=== PATIENT | female | born 1965 | race Caucasian/White ===

== ENCOUNTER 2016-07-03 04:53 | Emergency (ER) | payer MEDICARE, OTHER ==
[~2016-07-03] VITALS: Ht 167.6 cm; Wt 71.0 kg
[2016-07-03 05:08] VITALS: BP 143/87; PULSE 83; RESP 16; TEMP 98.3; O2SAT 100
[2016-07-03] MEDS ORDERED: METO-309 PO (05:19)
[2016-07-03] MEDS ORDERED: LOVA10TA PO (05:19)
[2016-07-03] MEDS ORDERED: METF500T PO (05:19)
[2016-07-03] MEDS ORDERED: CARA1TAB6 PO (05:19)
[2016-07-03] MEDS ORDERED: CLON1 PO (05:19)
[2016-07-03] MEDS ORDERED: VIST50CA PO (05:19)
[2016-07-03] MEDS ORDERED: CELE40TA PO (05:19)
[2016-07-03] MEDS ORDERED: PRIL20CA9 PO (05:19)
--- NOTE | 2016-07-03 05:51 | PD ---
HPI Chief Complaint: Injury Time Seen by Provider: 05:51 Travel History International Travel<30 days: No Contact w/Intl Traveler<30days: No Traveled to known affect area: No History of Present Illness HPI 51 year-old female presents to the emergency department by [facility] for evaluation of right ankle pain. Patient dates her and her son were walking home from the [place] to [place] at 3:30 in the morning when she rolled her ankle. Reports right ankle pain, 8 out of 10, worse with ambulation. Denies any alterations in sensation. She has no other symptoms to report this time. PFSH Past Medical History Arthritis: Yes Asthma: Yes Anxiety: Yes Depression: Yes High Cholesterol: Yes COPD: Yes Diabetes: Yes Patient Takes Glucophage: Yes GERD: Yes Hypertension: Yes Immunizations Current: Yes Sleep Apnea: Yes Triglycerides - High: Yes Tetanus Vaccination: < 5 Years Influenza Vaccination: No ?: Unknown Ovarian Cysts: Yes Past Surgical History Section: Yes Hysterectomy: Yes Social History Alcohol Use: No Tobacco Use: Yes Substance Use: No Allergies-Medications (Allergen,Severity, Reaction): Coded Allergies: Buspar (Verified Allergy, Severe, Cardiac Arrest, 07/03/16) Celebrex (Verified Allergy, Severe, Chest Pain, 07/03/16) Penicillin (Verified Allergy, Severe, Anaphylaxis, 07/03/16) Reported Meds & Prescriptions Reported Meds & Active Scripts Active Reported Vistaril (Hydroxyzine Pamoate) 50 Mg Cap 50 Mg PO QID PRN Klonopin (Clonazepam) 1 Mg Tab 1 Mg PO TID Celexa (Citalopram Hydrobromide) 40 Mg Tab 40 Mg PO DAILY Metformin (Metformin HCl) 500 Mg Tab 500 Mg PO BIDPC With meals Lovastatin 10 Mg Tab 10 Mg PO DAILY Lopressor (Metoprolol Tartrate) 50 Mg Tab 25 Mg PO DAILY Carafate (Sucralfate) 1 Gm Tab 1 Gm PO QID On empty stomach Prilosec (Omeprazole) 20 Mg Cap 20 Mg PO DAILY Review of Systems Except as stated in HPI: all other systems reviewed are Neg Physical Exam Narrative GENERAL: Well-nourished, well-developed female patient, in no acute distress SKIN: Focused skin assessment warm/dry. HEAD: Normocephalic. EYES: No scleral icterus. No injection or drainage. NECK: Supple, trachea midline. No JVD or lymphadenopathy. CARDIOVASCULAR: Regular rate and rhythm without murmurs, gallops, or rubs. RESPIRATORY: Breath sounds equal bilaterally. No accessory muscle use. GASTROINTESTINAL: Abdomen soft, non-tender, nondistended. EXTREMITY: The right ankle is minimally swollen and tender over the lateral aspect but the skin is intact and there is no ligamentous instability. There is no deformity. The foot and toes are warm and well-perfused. Sensation to pain and light touch is intact. BACK: Nontender without obvious deformity. No CVA tenderness. Data Data Last Documented VS Vital Signs Date Time Temp Pulse Resp B/P Pulse Ox O2 Delivery O2 Flow Rate FiO2 07/03/16 05:08 98.3 83 16 143/87 100 Orders Ankle, Complete (Mam0duc) (07/03/16 ) Ibuprofen (Motrin) (07/03/16 06:15) ^ Frankie Bandage (07/03/16 06:07) MDM Medical Decision Making Medical Screen Exam Complete: Yes Emergency Medical Condition: Yes Medical Record Reviewed: Yes Differential Diagnosis Ankle sprain versus fracture versus contusion versus dislocation Narrative Course 51 year-old female presents to the emergency department for evaluation of right ankle injury. X-ray imaging shows no acute bony abnormality. Frankie wrap is applied. Patient is discharged to follow-up with primary care provider. She agrees to return immediately with any acute worsening symptoms. Diagnosis Primary Impression: Right ankle sprain Qualified Code: S93.401A - Sprain of right ankle, unspecified ligament, initial encounter Referrals: Primary Care Physician Patient Instructions: Ankle Sprain Exercises (GEN), General Instructions Additional Instructions: Ice and elevate to reduce pain and swelling Frankie wrap for support Follow-up with a primary care provider Tylenol or ibuprofen as directed on the package as needed for pain Return immediately with any acute worsening symptoms Disposition: 01 DISCHARGE HOME Condition: Stable Kayy Felder RENU July 03, 2016 05:51
--- NOTE | 2016-07-03 06:01 | RADRPT ---
EXAM DATE/TIME: 07/03/2016 05:29 [facility] COMPARISON: No previous studies available for comparison. INDICATIONS : Right ankle pain MEDICAL HISTORY : None. SURGICAL HISTORY : None. ENCOUNTER: Initial ACUITY: 1 day PAIN SCORE: 4/10 LOCATION: Right ankle. FINDINGS: No definite fractures, or dislocations are identified. No definite lytic or sclerotic lesion is seen . The joint spaces are well maintained. CONCLUSION: Unremarkable study. Teofilo Douglas MD on July 03, 2016 at 6:00 Board Certified Radiologist. This report was verified electronically.
[2016-07-03] MEDS ORDERED: IBUPROFEN 600 MG TAB PO ONE (06:15)
== END 2016-07-03 06:31 | disposition home or self-care (01) ==
LOC: NEPD 04:53
DX: S93.401A Sprain of unspecified ligament of right ankle, initial encounter (principal); E11.9 Type 2 diabetes mellitus without complications; I10 Essential (primary) hypertension; E78.00 Pure hypercholesterolemia, unspecified; E78.1 Pure hyperglyceridemia; Z72.0 Tobacco use; G47.30 Sleep apnea, unspecified; X58.XXXA Exposure to other specified factors, initial encounter; Y93.01 Activity, walking, marching and hiking; Z79.84 Long term (current) use of oral hypoglycemic drugs; Z87.39 Personal history of other diseases of the musculoskeletal system and connective tissue; Z87.09 Personal history of other diseases of the respiratory system; Z86.59 Personal history of other mental and behavioral disorders; Z87.19 Personal history of other diseases of the digestive system
CPT/HCPCS: 73610; 99283